=== PATIENT | male | born 1940 | race Caucasian/White ===

== ENCOUNTER → 2018-10-31 11:15 | Outpatient (POV) | payer MEDICARE, OTHER, SELFPAY ==
[2018-10-31 11:56] VITALS: BP 113/72; PULSE 84; RESP 18; O2SAT 98; BMI 21.9
--- NOTE | 2018-10-31 12:44 | HMH.PAINSOAP ---
[facility] Pain Management SOAP Note Subjective:: Patient is a pleasant 78-year-old white male who presents today for follow-up after intrathecal pain pump placement. He rates his pain a 3 out of 10 today and is doing well he denies side effects. Is currently on [place] I discussed with him that he will need to wean off of this. Incision looks good with no sign symptoms of infection. ROS General: no recent weight change, no fever, no sleep disturbances Respiratory: no cough, no shortness of air, no recurring pulmonary infections Cardiovascular/Peripheral Vascular: No chest pain, No palpitations, no edema, no shortness of breath. Gastrointestinal: no incontinence, normal bowel movements reported Genitourinary: no incontinence Musculoskeletal: Back pain Psychiatric: normal mood/ affect Neurological: [denies weakness in extremities], [denies balance issues] Objective:: Physical Exam General: Alert and oriented x3, no acute distress, pleasant and cooperative, [on room air] Lungs: Resps E/U, Symmetrical chest expansion, Eyes: PERRL Musculoskeletal: Flexion and extension of lumbar spine somewhat guarded secondary to pain, deep tendon reflexes normal, strength in upper and lower extremities [5/5], [abnormal gait noted] Neurological: speech clear, trust manager assistant equal, no gross sensory deficits Assessment:: Degenerative disc disease lumbar spine with lumbar radiculopathy symptoms and postlaminectomy syndrome of lumbar spine Plan:: We will see the patient back in 2 weeks reassess him at that time. We will remove his stitches at that time. Patient has been instructed to call the office if he has any issues prior to his next appointment. Dr. An has reviewed this note and agrees with this plan of care. This note was dictated using voice recognition software and may contain errors or omissions
--- NOTE | 2018-10-31 12:48 | P.CONS_ITS ---
[facility] Pain Management SOAP Note Subjective:: Patient is a pleasant 78-year-old white male who presents today for follow-up after intrathecal pain pump placement. He rates his pain a 3 out of 10 today and is doing well he denies side effects. Is currently on [place] I discussed with him that he will need to wean off of this. Incision looks good with no sign symptoms of infection. ROS General: no recent weight change, no fever, no sleep disturbances Respiratory: no cough, no shortness of air, no recurring pulmonary infections Cardiovascular/Peripheral Vascular: No chest pain, No palpitations, no edema, no shortness of breath. Gastrointestinal: no incontinence, normal bowel movements reported Genitourinary: no incontinence Musculoskeletal: Back pain Psychiatric: normal mood/ affect Neurological: [denies weakness in extremities], [denies balance issues] Objective:: Physical Exam General: Alert and oriented x3, no acute distress, pleasant and cooperative, [on room air] Lungs: Resps E/U, Symmetrical chest expansion, Eyes: PERRL Musculoskeletal: Flexion and extension of lumbar spine somewhat guarded secondary to pain, deep tendon reflexes normal, strength in upper and lower extremities [5/5], [abnormal gait noted] Neurological: speech clear, record filing clerk equal, no gross sensory deficits Assessment:: Degenerative disc disease lumbar spine with lumbar radiculopathy symptoms and postlaminectomy syndrome of lumbar spine Plan:: We will see the patient back in 2 weeks reassess him at that time. We will remove his stitches at that time. Patient has been instructed to call the office if he has any issues prior to his next appointment. Dr. An has reviewed this note and agrees with this plan of care. This note was dictated using voice recognition software and may contain errors or omissions
== END ==
PROVIDERS: Visit Provider Clinical Nurse Specialist Family Health
DX: M51.16 Intervertebral disc disorders with radiculopathy, lumbar region (principal); M96.1 Postlaminectomy syndrome, not elsewhere classified
CPT/HCPCS: 62368

== ENCOUNTER → 2018-11-14 11:29 | Outpatient (POV) | payer MEDICARE, OTHER, SELFPAY ==
[2018-11-14 11:47] VITALS: BP 141/83; PULSE 77; RESP 18; O2SAT 98; BMI 21.7
--- NOTE | 2018-11-27 08:28 | P.PCN_ITS ---
- Procedure Date: 11/14/18 Time: 13:00 Anesthesiologist:: Izabela Galindo APRN Complications:: None Pre-procedure Diagnosis:: Degenerative disc disease lumbar spine with lumbar radiculopathy Post-procedure Diagnosis:: Same Indications for Procedure:: Patient is a pleasant 78-year-old white male who presents today for intrathecal pain pump adjustment. Patient is continuing to take his [place]. Dr. An and I both discussed with him that he is not to be taking this anymore. If the patient feels any more of his [place] we will have to start weaning his pump down. We will give him a slight increase today. Patient's surgical sutures were removed and the site looks clean dry and intact no sign symptoms of infection. He rates his pain a 5 out of 10. Physical Exam General: Alert and oriented x3, no acute distress, pleasant and cooperative, [on room air] Lungs: Resps E/U, Symmetrical chest expansion, Eyes: PERRL Musculoskeletal: Flexion and extension of lumbar spine somewhat guarded secondary to pain, deep tendon reflexes normal, strength in upper and lower extremities [5/5], [abnormal gait noted] Neurological: speech clear, client technical professional equal, no gross sensory deficits Procedure Details:: Informed consent was obtained and the risk and benefits of the procedure were explained to the patient. The patient was taken to the procedure room where noninvasive monitoring was placed including noninvasive blood pressure cuff and pulse oximeter. Patient's pump was interrogated and reprogrammed. The infusion rate was increased to 0.3 mg of morphine a day. The patient tolerated the procedure well. Plan and Disposition:: I will see the patient back in 1 month reassess his symptoms at that time. At this time he must be off of all of his [place] if he is not we will start decreasing his pump. Dr. An has reviewed this note and agrees with this plan of care. This note was dictated using voice recognition software and may contain errors or omissions
== END ==
PROVIDERS: Visit Provider Clinical Nurse Specialist Family Health
DX: M51.16 Intervertebral disc disorders with radiculopathy, lumbar region (principal)
CPT/HCPCS: 62368

== ENCOUNTER → 2018-12-18 11:34 | Outpatient (POV) | payer MEDICARE, OTHER, SELFPAY ==
[2018-12-18 11:53] VITALS: BP 133/73; PULSE 73; RESP 18; O2SAT 98; BMI 21.9
--- NOTE | 2018-12-18 11:57 | HMH.PMPROC ---
- Procedure Date: 12/18/18 Time: 11:57 Anesthesiologist:: Izabela Galindo APRN Complications:: None Pre-procedure Diagnosis:: Degenerative disc disease lumbar spine with lumbar radiculopathy Post-procedure Diagnosis:: Same Indications for Procedure:: Patient is a 78-year-old white male who presents today for follow-up and intrathecal pain pump reprogram. At his last visit he was told he could not fill any more [place]. Since then he has filled early another prescription of [place] 7.5 mg 1 p.o. 3 times daily.. Patient states he is only taking 1 a day however he is also states he has been running out early. Patient and I discussed that that is not possible unless he is taking up to 4 a day. Patient does not know how to reply to this. I discussed with the patient that due to his recent swelling and him stating the pump has not helped him at all that we will turn him down half today feeling with Dilaudid. If he gets relief from the Dilaudid he is to be off of the [place]. He understands this. Physical Exam General: Alert and oriented x3, no acute distress, pleasant and cooperative, [on room air] Lungs: Resps E/U, Symmetrical chest expansion, Eyes: PERRL Musculoskeletal: Flexion and extension of bar spine somewhat guarded secondary to pain, deep tendon reflexes normal, strength in upper and lower extremities [5/5], [abnormal gait noted] Neurological: speech clear, take off man equal, no gross sensory deficits Procedure Details:: Informed consent was obtained and the risk and benefits of the procedure were explained to the patient. The patient was taken to the procedure room where noninvasive monitoring was placed including noninvasive blood pressure cuff and pulse oximeter. Patient's pump was interrogated and reprogrammed. The infusion rate was decreased to 0.15 mg/day. The patient tolerated the procedure well. Plan and Disposition:: We will change the patient to Dilaudid we will start him at 0.1 mg/day patient is to be off of his [place]. We will contact the primary care physician and ensure that he understands that the patient has an intrathecal pain pump. Patient's been instructed to call the office if he has any issues prior to her next appointment. Dr. An has reviewed this note and agrees with this plan of care. This note was dictated using voice recognition software and may contain errors or omissions
--- NOTE | 2018-12-18 12:00 | P.PCN_ITS ---
- Procedure Date: 12/18/18 Time: 11:57 Anesthesiologist:: Izabela Galindo APRN Complications:: None Pre-procedure Diagnosis:: Degenerative disc disease lumbar spine with lumbar radiculopathy Post-procedure Diagnosis:: Same Indications for Procedure:: Patient is a 78-year-old white male who presents today for follow-up and intrathecal pain pump reprogram. At his last visit he was told he could not fill any more [place]. Since then he has filled early another prescription of [place] 7.5 mg 1 p.o. 3 times daily.. Patient states he is only taking 1 a day however he is also states he has been running out early. Patient and I discussed that that is not possible unless he is taking up to 4 a day. Patient does not know how to reply to this. I discussed with the patient that due to his recent swelling and him stating the pump has not helped him at all that we will turn him down half today feeling with Dilaudid. If he gets relief from the Dilaudid he is to be off of the [place]. He understands this. Physical Exam General: Alert and oriented x3, no acute distress, pleasant and cooperative, [on room air] Lungs: Resps E/U, Symmetrical chest expansion, Eyes: PERRL Musculoskeletal: Flexion and extension of bar spine somewhat guarded secondary to pain, deep tendon reflexes normal, strength in upper and lower extremities [5/5], [abnormal gait noted] Neurological: speech clear, programmer developer equal, no gross sensory deficits Procedure Details:: Informed consent was obtained and the risk and benefits of the procedure were explained to the patient. The patient was taken to the procedure room where noninvasive monitoring was placed including noninvasive blood pressure cuff and pulse oximeter. Patient's pump was interrogated and reprogrammed. The infusion rate was decreased to 0.15 mg/day. The patient tolerated the procedure well. Plan and Disposition:: We will change the patient to Dilaudid we will start him at 0.1 mg/day patient is to be off of his [place]. We will contact the primary care physician and ensure that he understands that the patient has an intrathecal pain pump. Patient's been instructed to call the office if he has any issues prior to her next appointment. Dr. An has reviewed this note and agrees with this plan of care. This note was dictated using voice recognition software and may contain errors or omissions
== END ==
PROVIDERS: Visit Provider Clinical Nurse Specialist Family Health
DX: M51.16 Intervertebral disc disorders with radiculopathy, lumbar region (principal)
CPT/HCPCS: 62368

== ENCOUNTER → 2018-12-26 13:35 | Day surgery (SDC) | payer MEDICARE, OTHER, SELFPAY ==
[2018-12-26 13:51] VITALS: BP 151/82; PULSE 64; RESP 18; TEMP 36.6; O2SAT 94; BMI 21.9
--- NOTE | 2018-12-26 14:13 | HMH.PMPROC ---
- Procedure Date: 12/26/18 Time: 14:14 Anesthesiologist:: Izabela Galindo APRN Complications:: None Pre-procedure Diagnosis:: Degenerative disc disease lumbar spine with lumbar radiculopathy Post-procedure Diagnosis:: Same Indications for Procedure:: Patient is a pleasant 78-year-old white male who presents today for intrathecal pain pump refill and reprogram. Patient was told several visits ago he could not refill his [place] he is can continue to refill it. We decreased his pump at his last visit we will be changing him to Dilaudid today. If this is not beneficial for him we will discontinue the pump therapy and he can continue on his oral narcotics. Patient was spoken to by both me and Dr. An in regards to his oral narcotics. He is in full understanding of this. Patient's MORALES #[id number] will be continually monitored. Patient is not to fill any more narcotic medications. Physical Exam General: Alert and oriented x3, no acute distress, pleasant and cooperative, [on room air] Lungs: Resps E/U, Symmetrical chest expansion, Eyes: PERRL Musculoskeletal: Flexion and extension of lumbar spine somewhat guarded secondary to pain, deep tendon reflexes normal, strength in upper and lower extremities [5/5], [abnormal gait noted] Neurological: speech clear, line server equal, no gross sensory deficits Procedure Details:: Informed consent was obtained and the risk and benefits of the procedure were explained to the patient. The patient was taken to the procedure room where noninvasive monitoring was placed including noninvasive blood pressure cuff and pulse oximeter. Patient's pump was interrogated. The area over the pump was cleansed with chlorhexidine as a cleansing solution. In sterile fashion the pump was accessed with a 22-gauge needle. Approximately 16 mL's were removed of the pump solution and discarded appropriately. The pump was then refilled with 20 mL's of Dilaudid 1 mg/mL. The needle was withdrawn and a bandage was placed over the puncture site. The infusion rate was reprogrammed to started at 0.05 mg/day. The patient tolerated the procedure well. Plan and Disposition:: We will follow-up with the patient 2 weeks reassess his symptoms at that time has been instructed to call the office if you see any issues prior to his next appointment. Dr. An has reviewed this note and agrees with this plan of care. This note was dictated using voice recognition software and may contain errors or omissions
[2018-12-26 14:15] VITALS: BP 151/79; PULSE 65; RESP 18; TEMP 36.7; O2SAT 97
--- NOTE | 2018-12-26 14:32 | P.PCN_ITS ---
- Procedure Date: 12/26/18 Time: 14:14 Anesthesiologist:: Izabela Galindo APRN Complications:: None Pre-procedure Diagnosis:: Degenerative disc disease lumbar spine with lumbar radiculopathy Post-procedure Diagnosis:: Same Indications for Procedure:: Patient is a pleasant 78-year-old white male who presents today for intrathecal pain pump refill and reprogram. Patient was told several visits ago he could not refill his [place] he is can continue to refill it. We decreased his pump at his last visit we will be changing him to Dilaudid today. If this is not beneficial for him we will discontinue the pump therapy and he can continue on his oral narcotics. Patient was spoken to by both me and Dr. An in regards to his oral narcotics. He is in full understanding of this. Patient's MORALES #[id number] will be continually monitored. Patient is not to fill any more narcotic medications. Physical Exam General: Alert and oriented x3, no acute distress, pleasant and cooperative, [on room air] Lungs: Resps E/U, Symmetrical chest expansion, Eyes: PERRL Musculoskeletal: Flexion and extension of lumbar spine somewhat guarded secondary to pain, deep tendon reflexes normal, strength in upper and lower extremities [5/5], [abnormal gait noted] Neurological: speech clear, enterprise security architect equal, no gross sensory deficits Procedure Details:: Informed consent was obtained and the risk and benefits of the procedure were explained to the patient. The patient was taken to the procedure room where noninvasive monitoring was placed including noninvasive blood pressure cuff and pulse oximeter. Patient's pump was interrogated. The area over the pump was cleansed with chlorhexidine as a cleansing solution. In sterile fashion the pump was accessed with a 22-gauge needle. Approximately 16 mL's were removed of the pump solution and discarded appropriately. The pump was then refilled with 20 mL's of Dilaudid 1 mg/mL. The needle was withdrawn and a bandage was placed over the puncture site. The infusion rate was reprogrammed to started at 0.05 mg/day. The patient tolerated the procedure well. Plan and Disposition:: We will follow-up with the patient 2 weeks reassess his symptoms at that time has been instructed to call the office if you see any issues prior to his next appointment. Dr. An has reviewed this note and agrees with this plan of care. This note was dictated using voice recognition software and may contain errors or omissions
[2018-12-26 15:28] VITALS: BP 153/71; PULSE 73; RESP 18; O2SAT 98
== END ==
PROVIDERS: Visit Provider Clinical Nurse Specialist Family Health
DX: M51.16 Intervertebral disc disorders with radiculopathy, lumbar region (principal)
CPT/HCPCS: 62370

== ENCOUNTER → 2019-01-09 10:35 | Outpatient (POV) | payer MEDICARE, OTHER, SELFPAY ==
--- NOTE | 2019-01-09 13:12 | HMH.PMPROC ---
- Procedure Date: 01/09/19 Time: 10:45 Anesthesiologist:: Izabela Galindo APRN Complications:: None Pre-procedure Diagnosis:: Degenerative disc disease lumbar spine with lumbar radiculopathy Post-procedure Diagnosis:: Same Indications for Procedure:: Patient is a pleasant 78-year-old white male who presents today for intrathecal pain pump adjustment. At last visit, the patient did that he was still taking [place] 7.5 mg 2 times a day. We had a long discussion concerning oral opiate use with intrathecal pain management. At that time we did decrease his dose of Dilaudid. The patient does admit that he still takes an occasional [place] . Again, we discussed that he will need to stop taking [place] if he wishes to continue pump therapy. The patient is in agreement, and states that he will stop taking [place] immediately. This. [facility] report [id number] has been reviewed, with [place] 7.5 mg #90 being refilled on December 15, 2018. Since the patient is in agreement to stop taking [place], we will increase his dose of Dilaudid today. Physical Exam General: Alert and oriented x3, no acute distress, pleasant and cooperative, [on room air] Lungs: Resps E/U, Symmetrical chest expansion, Eyes: PERRL Musculoskeletal: Flexion and extension of lumbar spine somewhat guarded secondary to pain, deep tendon reflexes normal, strength in upper and lower extremities [5/5], [abnormal gait noted] Neurological: speech clear, banking officer equal, no gross sensory deficits Procedure Details:: Informed consent was obtained and the risk and benefits of the procedure were explained to the patient. The patient was taken to the procedure room where noninvasive monitoring was placed including noninvasive blood pressure cuff and pulse oximeter. Patient's pump was interrogated and reprogrammed. The infusion rate was increased to 0.1 mg of Dilaudid. The patient tolerated the procedure well. Plan and Disposition:: We will follow-up with the patient at his next intrathecal pain pump refill and reprogram and reassess his symptoms at that time. He is been instructed to call the office if he has any issues prior to his next appointment. Dr. An has reviewed this note and agrees with this plan of care. This note was dictated using voice recognition software and may contain errors or omissions
--- NOTE | 2019-01-09 13:18 | P.PCN_ITS ---
- Procedure Date: 01/09/19 Time: 10:45 Anesthesiologist:: Izabela Galindo APRN Complications:: None Pre-procedure Diagnosis:: Degenerative disc disease lumbar spine with lumbar radiculopathy Post-procedure Diagnosis:: Same Indications for Procedure:: Patient is a pleasant 78-year-old white male who presents today for intrathecal pain pump adjustment. At last visit, the patient did that he was still taking [place] 7.5 mg 2 times a day. We had a long discussion concerning oral opiate use with intrathecal pain management. At that time we did decrease his dose of Dilaudid. The patient does admit that he still takes an occasional [place] . Again, we discussed that he will need to stop taking [place] if he wishes to continue pump therapy. The patient is in agreement, and states that he will stop taking [place] immediately. This. [facility] report [id number] has been reviewed, with [place] 7.5 mg #90 being refilled on December 15, 2018. Since the patient is in agreement to stop taking [place], we will increase his dose of Dilaudid today. Physical Exam General: Alert and oriented x3, no acute distress, pleasant and cooperative, [on room air] Lungs: Resps E/U, Symmetrical chest expansion, Eyes: PERRL Musculoskeletal: Flexion and extension of lumbar spine somewhat guarded secondary to pain, deep tendon reflexes normal, strength in upper and lower extremities [5/5], [abnormal gait noted] Neurological: speech clear, housekeeping lead equal, no gross sensory deficits Procedure Details:: Informed consent was obtained and the risk and benefits of the procedure were explained to the patient. The patient was taken to the procedure room where noninvasive monitoring was placed including noninvasive blood pressure cuff and pulse oximeter. Patient's pump was interrogated and reprogrammed. The infusion rate was increased to 0.1 mg of Dilaudid. The patient tolerated the procedure well. Plan and Disposition:: We will follow-up with the patient at his next intrathecal pain pump refill and reprogram and reassess his symptoms at that time. He is been instructed to call the office if he has any issues prior to his next appointment. Dr. An has reviewed this note and agrees with this plan of care. This note was dictated using voice recognition software and may contain errors or omissions
== END ==
PROVIDERS: Visit Provider Clinical Nurse Specialist Family Health
DX: M51.16 Intervertebral disc disorders with radiculopathy, lumbar region (principal)
CPT/HCPCS: 62368; 62370

== ENCOUNTER → 2019-05-15 12:56 | Outpatient (POV) | payer MEDICARE, OTHER, SELFPAY ==
[2019-05-15 13:12] VITALS: BP 142/92; PULSE 78; RESP 18; O2SAT 97
[2019-05-15 13:16] VITALS: BMI 20.6
--- NOTE | 2019-05-15 13:30 | HMH.PMPROC ---
- Procedure Date: 05/15/19 Time: 13:30 Anesthesiologist:: Izabela Galindo APRN Complications:: None Pre-procedure Diagnosis:: Degenerative disc disease lumbar spine with lumbar radiculopathy Post-procedure Diagnosis:: Same Indications for Procedure:: Patient is 78-year-old white male who presents today for intrathecal pain pump refill and reprogram. On review of his notes patient is continually filling his [place]. Patient is taking it he states occasionally however it is enough to be in his urine. Patient is also on Ambien from Dr. Julio Cesar Goff. We did call his PCP to discuss with him the importance of him not being on oral narcotics along with a sleep aid and intrathecal pain medicine. Patient states the pump does not work for me and never has . Patient states I am not the first person his pump has not worked for I have talked other people . Patient and I discussed her next steps. We will turn him to 0 on his intrathecal infusion today so he can continue taking his narcotics from his primary care physician. Patient would like to have the intrathecal pain pump removed in [facility]. Physical Exam General: Alert and oriented x3, no acute distress, pleasant and cooperative, [on room air] Lungs: Resps E/U, Symmetrical chest expansion, Eyes: PERRL Musculoskeletal: Flexion and extension of lumbar spine somewhat guarded secondary to pain, deep tendon reflexes normal, strength in upper and lower extremities [5/5], Palgic gait noted Neurological: speech clear, reverse engineer equal, no gross sensory deficits Procedure Details:: Informed consent was obtained and the risk and benefits of the procedure were explained to the patient. The patient was taken to the procedure room where noninvasive monitoring was placed including noninvasive blood pressure cuff and pulse oximeter. Patient's pump was interrogated and reprogrammed. The infusion rate was changed to 0 mg/day. The patient tolerated the procedure well. Plan and Disposition:: We will get the patient scheduled in [facility] for removal of intrathecal pain pump. Patient is going to continue his chronic opioid care with his primary care physician. We will follow-up with the patient on as-needed basis he is been instructed to call the office if he has any issues. Dr. An has reviewed this note and agrees with this plan of care. This note was dictated using voice recognition software and may contain errors or omissions
--- NOTE | 2019-05-23 12:38 | PC.PHONENOTE ---
Spoke with Estefany Levar, via phone, regarding Dr. An's instructions to be off oral narcotic medications 48 hours prior to his next appointment. Pt verbalized understanding, reminded him of his appointment date and time, per request. Pt states he is taking 1-11/2 tablets of his norco daily. Pt verbalized understanding.
== END ==
PROVIDERS: Visit Provider Clinical Nurse Specialist Family Health
DX: M51.16 Intervertebral disc disorders with radiculopathy, lumbar region (principal)
CPT/HCPCS: 62368

== ENCOUNTER → 2019-11-25 10:34 | Outpatient (CLI) | payer MEDICARE, OTHER, SELFPAY ==
[2019-11-26 16:30] LABS: Covid-19 Nasal PCR Sendout UK Not Detected
== END ==
PROVIDERS: Visit Provider Anesthesiology
DX: Z03.818 Encounter for observation for suspected exposure to other biological agents ruled out (principal)
CPT/HCPCS: U0003

== ENCOUNTER 2019-12-04 14:35 | Day surgery (SDC) | payer MEDICARE, OTHER, SELFPAY ==
[2019-12-04 14:42] VITALS: BP 178/98; PULSE 104; RESP 18; O2SAT 94; BMI 22.6
[2019-12-04 14:57] VITALS: BP 145/85; PULSE 85; RESP 18; TEMP 36.4; O2SAT 99
[2019-12-04 14:59] VITALS: BP 142/85; PULSE 85; RESP 18; O2SAT 99
[2019-12-04 15:06] VITALS: BP 173/96; PULSE 94; RESP 18; O2SAT 96
--- NOTE | 2019-12-04 15:08 | P.PCN_ITS ---
- Procedure Date: 12/04/19 Time: 15:08 Anesthesiologist:: Izabela Galindo APRN Complications:: None Pre-procedure Diagnosis:: Degenerative disc disease lumbar spine with lumbar radiculopathy symptoms and postlaminectomy syndrome Post-procedure Diagnosis:: Same Indications for Procedure:: Patient is a pleasant 79-year-old white male who presents today for intrathecal pain pump refill and reprogram he is currently doing well is 0.33 mg of Dilaudid infusion a day. He denies any side effects he does not need any changes. [facility] reviewed and appropriate. #[id number]. Physical Exam General: Alert and oriented x3, no acute distress, pleasant and cooperative, [on room air] Lungs: Resps E/U, Symmetrical chest expansion, Eyes: PERRL Musculoskeletal: Flexion and extension of lumbar spine somewhat guarded secondary to pain, deep tendon reflexes normal, strength in upper and lower extremities [5/5], antalgic gait noted Neurological: speech clear, chef concierge equal, no gross sensory deficits Procedure Details:: Informed consent was obtained and the risk and benefits of the procedure were explained to the patient. The patient was taken to the procedure room where noninvasive monitoring was placed including noninvasive blood pressure cuff and pulse oximeter. Patient's pump was interrogated. The area over the pump was cleansed with chlorhexidine as a cleansing solution. In sterile fashion the pump was accessed with a 22-gauge needle. Approximately 10 mL's were removed of the pump solution and discarded appropriately. The pump was then refilled with 20 mL's of hydromorphone 3 mg/mL. The needle was withdrawn and a bandage was placed over the puncture site. The infusion rate was reprogrammed to continued at 0.33 mg/day. The patient tolerated the procedure well. Plan and Disposition:: I will follow-up with the patient at his next intrathecal pain pump refill and reprogram he has been instructed to call the office if he has any issues prior to his next appointment. Dr. An has reviewed this note and agrees with this plan of care. This note was dictated using voice recognition software and may contain errors or omissions
== END 2019-12-04 15:10 | disposition home or self-care (01) ==
LOC: SC.PAINP 14:37
PROVIDERS: Visit Provider Clinical Nurse Specialist Family Health
DX: M51.16 Intervertebral disc disorders with radiculopathy, lumbar region (principal); M96.1 Postlaminectomy syndrome, not elsewhere classified; Z95.5 Presence of coronary angioplasty implant and graft; Z87.39 Personal history of other diseases of the musculoskeletal system and connective tissue
CPT/HCPCS: 95991

== ENCOUNTER 2020-02-11 14:27 | Day surgery (SDC) | payer MEDICARE, OTHER, SELFPAY ==
[2020-02-11 14:52] VITALS: BP 141/54; PULSE 43; RESP 18; TEMP 36.7; O2SAT 96; BMI 23.0
[2020-02-11 15:11] VITALS: BP 135/88; PULSE 58; RESP 18
--- NOTE | 2020-02-11 15:13 | [facility].PMPROC ---
- Procedure Date: 02/11/20 Time: 15:22 Anesthesiologist:: Katerine Estes APRN Complications:: None Pre-procedure Diagnosis:: Degenerative disc disease lumbar spine with lumbar radiculopathy symptoms, postlaminectomy syndrome lumbar spine Post-procedure Diagnosis:: Same Indications for Procedure:: Patient is a pleasant 79-year-old white male who presents today for intrathecal pain pump refill and reprogram. He is currently on intrathecal therapy at Dilaudid 0.33 mg/day. He denies any side effects to his medications. [facility] and urine drug screens have been appropriate. His pain is 6 out of 10 today. He rates his pain a 2 out of 10 today. He does not need any changes in his intrathecal therapy. Physical exam General: Alert and oriented x3, no acute distress, pleasant and cooperative, [on room air] Lungs: Respirations even and unlabored, symmetrical chest expansion Eyes: PERRL Musculoskeletal: Flexion and extension of lumbar spine somewhat guarded secondary to pain, deep tendon reflexes normal, strength in upper and lower extremities [5/5], [abnormal gait noted] Neurological: Speech clear, attic fans mechanic equal, no gross sensory deficit Procedure Details:: Informed consent was obtained and the risk and benefits of the procedure were explained to the patient. The patient was taken to the procedure room where noninvasive monitoring was placed including noninvasive blood pressure cuff and pulse oximeter. Patient's pump was interrogated. The area over the pump was cleansed with chlorhexidine as a cleansing solution. In sterile fashion the pump was accessed with a 22-gauge needle. Approximately 11.5 Mls of the pump solution was removed and discarded appropriately. The pump was then refilled with 20 mL's of Dilaudid 3 mg/mL. The needle was withdrawn and a bandage was placed over the puncture site. The infusion rate was reprogrammed at Dilaudid at 0.33 mg/day. The patient tolerated well with no complication. Plan and Disposition:: We will see the patient back at his next intrathecal pain pump refill and reprogram. He has been instructed to contact the clinic if he has any concerns before his next appointment. The patient and I specifically discussed risk factors for COVID19. These risks include, but are not limited to age greater than 60, heart or lung disease, diabetes, immunosuppression, and travel. We also discussed NSAIDs may worsen COVID19 infection or symptoms. Patient should not use NSAIDs to treat COVID19 signs or symptoms. Patient was also informed that any type of corticosteroid of any form (oral or injection) will decrease the patient's immune system response and may increase the likelihood of COVID19 infection and symptoms[address] Dr. An has reviewed this note and agrees with this plan of care. This note was dictated using voice recognition software and make contain errors or omissions.
[2020-02-11 15:18] VITALS: BP 145/89; PULSE 56; RESP 18; O2SAT 97
[2020-02-11 15:30] VITALS: BP 158/63; PULSE 45; RESP 18; O2SAT 96
== END 2020-02-11 15:31 | disposition home or self-care (01) ==
LOC: SC.PAINP 14:29
PROVIDERS: Visit Provider Clinical Nurse Specialist Family Health
DX: M51.16 Intervertebral disc disorders with radiculopathy, lumbar region (principal); M96.1 Postlaminectomy syndrome, not elsewhere classified; I25.2 Old myocardial infarction; Z87.39 Personal history of other diseases of the musculoskeletal system and connective tissue; Z95.818 Presence of other cardiac implants and grafts; Z90.49 Acquired absence of other specified parts of digestive tract; Z79.01 Long term (current) use of anticoagulants; Z79.84 Long term (current) use of oral hypoglycemic drugs; Z79.899 Other long term (current) drug therapy
CPT/HCPCS: 95991